=== PATIENT | male | born 1975 | race African-American/Black ===

== ENCOUNTER 2019-06-21 21:23 | Observation (INO) | payer SELFPAY ==
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
[2019-06-22] MEDS ORDERED: Sodium Chloride 0.9% 1,000 ML IV SCH (00:17)
[2019-06-22] MEDS ORDERED: Ondansetron PF 4 MG/2 ML Vial IVP PRN (00:17)
[2019-06-22] MEDS ORDERED: Ondansetron ODT 4 MG TAB SL PRN (00:17)
[2019-06-22] MEDS ORDERED: Acetaminophen 650 MG Suppository PR PRN (00:55)
[2019-06-22] MEDS ORDERED: Senokot S 8.6-50 MG TAB PO PRN (00:55)
[2019-06-22] MEDS ORDERED: Acetaminophen 325 MG TAB PO PRN (00:55)
[2019-06-22] MEDS: Sodium Chloride 0.9% 1,000 ML IV SCH ×4 (01:14→15:07)
[2019-06-22 05:59] LABS: ALT (SGPT) 26 U/L (8-55); AST (SGOT) 86 U/L (5-34); Albumin 3.4 g/dL (3.5-5.0); Alkaline Phosphatase 47 U/L (40-110); Anion Gap 13 mmol/L (10-20); BUN (Urea Nitrogen) 7 mg/dL (8.9-20.6); Bilirubin, Total 0.3 mg/dL (0.2-1.2); CK (CPK) 2878 U/L (30-200); Calc. Creatinine Clearance 131 mL/min (70-130); Calcium 7.9 mg/dL (7.8-10.44); Carbon Dioxide 26 mmol/L (22-29); Chloride 105 mmol/L (98-107); Estimated GFR-MDRD Greater than 90; Globulin 2.6 g/dL (2.4-3.5); Glucose 90 mg/dL (70-105); Potassium 3.7 mmol/L (3.5-5.1); Sodium 140 mmol/L (136-145)
--- NOTE | 2019-06-22 06:01 | PDOC.FM ---
- Subjective Subjective: NAEO. Patient reports he feels well this AM. States he doesn't remember much from last night or how he ended up in the hospital. Denies any chest pain, SOB or body aches/cramps. No nausea and is tolerating fluids PO. - Objective MAR Reviewed: Yes Vital Signs & Weight: Vital Signs (12 hours) Temp Pulse Resp BP BP Pulse Ox 06/22/19 04:19 131/51 L 06/22/19 04:07 98.3 F 63 16 131/51 L 99 06/22/19 02:00 133/76 06/21/19 23:32 97.7 F 62 16 133/76 98 Weight Weight 72.121 kg I&O: 06/20/19 06/21/19 06/22/19 06:59 06:59 06:59 Intake Total 980 Balance 980 Result Diagrams: 06/22/19 05:02 Phys Exam - Physical Examination Constitutional: NAD HEENT: moist MMs Neck: supple, full ROM Respiratory: no wheezing, no rales, no rhonchi, clear to auscultation bilateral Cardiovascular: RRR, no significant murmur Musculoskeletal: no edema Neurological: non-focal, moves all 4 limbs Psychiatric: normal affect, A&O x 3 Skin: no rash, normal turgor, cap refill <2 seconds Dx/Plan (1) Rhabdomyolysis Code(s): M62.82 - RHABDOMYOLYSIS Status: Acute (2) Elevated AST (SGOT) Code(s): R74.0 - NONSPEC ELEV OF LEVELS OF TRANSAMNS & LACTIC ACID DEHYDRGNSE Status: Acute (3) Marijuana abuse Code(s): F12.10 - CANNABIS ABUSE, UNCOMPLICATED Status: Chronic (4) Low TSH level Code(s): R79.89 - OTHER SPECIFIED ABNORMAL FINDINGS OF BLOOD CHEMISTRY Status : Acute - Plan Plan: 44 yo AA male with no PMHcomes in due to being found to have rhabdo. 1. Rhabdomyolysis CK: 4656--> 2878 this AM * Will continue IVF NS @ 200mL/hr & recheck a CK again this afternoon @ ~1600. If equal to or below 1k will be ok to d/c home with close follow-up. * Cre: 0.9 on admission and down to 0.75 this AM. No evidence of CHANDNI thus far. 2. Subclinical hypothyroidism TSH: 0.31 in [place] but Free T3 & T4 WNLs 2.67 & 0.88 respectively. Will treat only if patient is symptomatic & consider checking anti-TPO Ab level while inpatient vs. an outpatient workup. 3. Alcohol Abuse AST elevated to 138 in [place] but down to 86 this AM s/p IVFs overnight. * ASE protocol in place * EtOH level was 357 on UDS * Will travel counselor on cessation 4. Marijuana Abuse UDS: Marijuana detected * Says he smokes daily * Will travel counselor on cessation Code Status: Full Diet: Regular DVT PPx: SCDs GI PPx: Pepcid PCP: [facility] Dispo: Will likely be discharged home today pending afternoon repeat CPK level. Addendum - Attending - Attending Attestation Date/Time: 06/22/19 [id number] I personally evaluated the patient and discussed the management with Dr. Sarkar. I agree with the History, Examination, Assessment and Plan documented above with any addition or exceptions noted below.
[2019-06-22 06:11] LABS: Free T4 (Free Thyroxine) 0.88 ng/dL (0.70-1.48)
[2019-06-22] MEDS ORDERED: Famotidine 20 MG TAB PO SCH (09:00)
[2019-06-22 12:49] VITALS: BMI 22.1
[2019-06-22 16:36] VITALS: BP 133/73; TEMP 98.5
--- NOTE | 2019-06-23 10:24 | DIS ---
DATE OF ADMISSION: 06/21/2019 DATE OF DISCHARGE: 06/22/2019 RESIDENT: Maame Sarkar MD ADMITTING ATTENDING: Main Garrett MD DISCHARGE ATTENDING: Rip Vargas MD CONSULTS: None. PROCEDURES: None. PRIMARY DIAGNOSES: 1. Rhabdomyolysis. 2. Acute metabolic encephalopathy secondary to alcohol intoxication. SECONDARY DIAGNOSIS: None. DISCHARGE MEDICATIONS: None. HOSPITAL COURSE: The patient is a 44-year-old gentleman with past medical history significant for alcohol abuse, who was brought in to the [place] [facility] by the [facility] for medical clearance and [facility] screening. Per the [place] [facility] physician, the patient reportedly became acutely intoxicated and was becoming aggressive and agitated. In [place], the patient was given 20 mg of Geodon IM and 2 L of NS and basic blood work including a CBC, CPK, CMP, serum drug screen, urine drug screen, and TSH were obtained. His CBC appeared to be within normal limits and his CMP was notable for a significantly elevated AST consistent with acute alcohol intoxication at 138 and his CPK level was elevated at 4656. In addition, his UDS was positive for marijuana and his plasma alcohol level was significantly elevated at 357. The patient was determined to have rhabdomyolysis based on his significantly elevated CPK level and was then transferred to [facility] for continued aggressive IV fluid resuscitation overnight. The patient was continued on aggressive IV fluids with normal saline overnight and by the following morning, was alert and oriented x3 and tolerating p.o. In addition, his CPK level had trended down to 2878 and a repeat later that afternoon after continued fluids all day showed that they continued to downtrend and was down to 2568. The patient was therefore deemed stable for discharge home with instructions to continue with aggressive p.o. hydration over the next several days and to abstain from alcohol and marijuana use. The patient was encouraged to establish care with a primary care provider and multiple PCPs in his hometown in [place] were provided in his discharge paperwork. DISPOSITION: Stable. DISCHARGE INSTRUCTIONS: 1. Location: Home. 2. Diet: Regular diet, no restrictions. 3. Activity: Activity as tolerated, no restrictions. 4. Followup: The patient was instructed to follow up with either [facility] or [facility] located in [place] within 1 week of discharge. Job ID: [id number]
== END 2019-06-22 16:51 | disposition home or self-care (01) ==
LOC: ERS 21:23 → T4-A 23:20
PROVIDERS: ADMIT Family Medicine; ATTEND Family Medicine
DX: M62.82 Rhabdomyolysis (principal); G93.41 Metabolic encephalopathy; F10.129 Alcohol abuse with intoxication, unspecified; E05.90 Thyrotoxicosis, unspecified without thyrotoxic crisis or storm; F17.210 Nicotine dependence, cigarettes, uncomplicated; F12.10 Cannabis abuse, uncomplicated; Y90.8 Blood alcohol level of 240 mg/100 ml or more
CPT/HCPCS: 36415; 80053; 82550; 84439; 84481; 96360; 96361; 99285; G0378